=== PATIENT | male | born 1940 | race Caucasian/White ===

== ENCOUNTER 2017-11-17 21:00 | Observation (INO) | payer OTHER ==
[~2017-11-17] VITALS: Ht 175.3 cm; Wt 77.5 kg
[2017-11-17 21:02] VITALS: BP 95/51; PULSE 97; RESP 18; TEMP 97.3; O2SAT 95
[2017-11-17 21:23] VITALS: BP 90/56; PULSE 127; RESP 18; TEMP 97.3; O2SAT 97
[2017-11-17] MEDS ORDERED: LUNE1TAB8 PO (21:23)
--- NOTE | 2017-11-17 21:42 | PD ---
HPI Chief Complaint: Cardiac Complaint Time Seen by Provider: 21:34 Travel History International Travel<30 days: No Contact w/Intl Traveler<30days: No Traveled to known affect area: No History of Present Illness HPI 77-year-old male presents to the emergency department by private vehicle the care of his family for evaluation of pain in the left shoulder and palpitations. According to the patient he takes no routine prescription or over -the-counter medications. Patient has recently been on ibuprofen for bruising of the heel. Patient occasionally uses [id number] sleeping medication. 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 Patient denies any headache dizziness or near syncope syncope sweats shortness of breath chest pain neck pain or mid scapular pain or extremity pain or abdominal pain. Patient denies history of hypertension dyslipidemia diabetes tobaccoism or rhythm disturbance. Patient did experience intermittent episodes of dizziness when he was performing heavy lifting tasks today. Patient denies any dizziness at this time. Patient rates his current pain 0/10 in intensity. Patient did take aspirin prior to arrival to the emergency department. PFSH Past Medical History Narrative Medical Negative past history; cholecystectomy leg surgery; no tobacco use no alcohol use; nursing notes reviewed Diminished Hearing: No Tetanus Vaccination: < 5 Years Influenza Vaccination: Yes Social History Alcohol Use: No Tobacco Use: No Substance Use: No Allergies-Medications (Allergen,Severity, Reaction): Coded Allergies: No Known Allergies (Unverified Allergy, Unknown, 11/17/17) Reported Meds & Prescriptions Reported Meds & Active Scripts Active Reported Lunesta (Eszopiclone) 1 Mg Tab 1 Mg PO HS PRN Review of Systems Except as stated in HPI: all other systems reviewed are Neg General / Constitutional: No: Fever, Chills Eyes: No: Visual changes HENT: Positive: Lightheadedness, No: Headaches, Neck Pain Cardiovascular: Positive: Palpitations, Tachycardia, No: Chest Pain or Discomfort, Diaphoresis, Syncope, Dyspnea on exertion Respiratory: No: Shortness of Breath Gastrointestinal: No: Nausea, Vomiting Genitourinary: No: Urgency, Frequency, Flank Pain Musculoskeletal: No: Pain Skin: No Rash Neurologic: Positive: Dizziness (intermittent with heavy lifting), No: Weakness , Syncope, Focal Abnormalities, Coordination Problem Psychiatric: No: Anxiety Endocrine: No: Heat Intolerance Hematologic/Lymphatic: No: Easy Bruising Physical Exam Narrative GENERAL: Well-developed well-nourished elderly female in no acute distress no respiratory distress heart rate irregularly irregular 90-145bpm; blood pressure 95 systolic patient reports chronically blood pressure is in the 90s. GCS 15. SKIN: Warm and dry. HEAD: Atraumatic. Normocephalic. EYES: Pupils equal and round. No scleral icterus. No injection or drainage. ENT: No nasal bleeding or discharge. Mucous membranes pink and moist. NECK: Trachea midline. No JVD. CARDIOVASCULAR: Increased irregularly irregular rate and rhythm. RESPIRATORY: No accessory muscle use. Clear to auscultation. Breath sounds equal bilaterally. GASTROINTESTINAL: Abdomen soft, non-tender, nondistended. Hepatic and splenic margins not palpable. MUSCULOSKELETAL: Extremities without clubbing, cyanosis, or edema. No obvious deformities. Radial dorsalis pedis pulses 2+ to palpation bilaterally. NEUROLOGICAL: Awake and alert. No obvious cranial nerve deficits. Motor grossly within normal limits. Five out of 5 muscle strength in the arms and legs. Normal speech. PSYCHIATRIC: Appropriate mood and affect; insight and judgment normal. Data Data Last Documented VS Vital Signs Date Time Temp Pulse Resp B/P (MAP) Pulse Ox O2 Delivery O2 Flow Rate FiO2 11/17/17 22:49 52 18 93/54 (67) 97 Room Air 11/17/17 21:23 97.3 Orders Orders Diltiazem Inj (Cardizem Inj) (11/17/17 21:45) Diltiazem Inj (Cardizem Inj) (11/17/17 21:45) Sodium Chloride 0.9% Flush (Ns Flush) (11/17/17 21:45) Electrocardiogram (11/17/17 21:34) Basic Metabolic Panel (Bmp) (11/17/17 21:34) Ckmb (Isoenzyme) Profile (11/17/17 21:34) Complete Blood Count With Diff (11/17/17 21:34) Magnesium (Mg) (11/17/17 21:34) Prothrombin Time / Inr (Pt) (11/17/17 21:34) Act Partial Throm Time (Ptt) (11/17/17 21:34) Troponin I (11/17/17 21:34) Chest, Single Ap (11/17/17 21:34) Ecg Monitoring (11/17/17 21:34) Bilateral Bp Monitoring (11/17/17 21:34) Iv Access Insert/Monitor (11/17/17 21:34) Oximetry (11/17/17 21:34) Oxygen Administration (11/17/17 21:34) Sodium Chloride 0.9% Flush (Ns Flush) (11/17/17 21:45) Sodium Chlorid 0.9% 500 Ml Inj (Ns 500 M (11/17/17 21:45) Sodium Chlorid 0.9% 500 Ml Inj (Ns 500 M (11/17/17 21:45) Sodium Chlor 0.9% 1000 Ml Inj (Ns 1000 M (11/17/17 21:45) B-Type Natriuretic Peptide (11/17/17 21:34) Thyroid Stimulating Hormone (11/17/17 21:34) CKMB (11/17/17 21:35) CKMB% (11/17/17 21:35) Electrocardiogram (11/17/17 22:48) Admit Order (Ed Use Only) (11/17/17 ) Textile Machine Mechanic / Telemetry OSCAR.Q8H (11/17/17 22:59) Diet Heart Healthy (11/18/17 Breakfast) Activity Oob With Assistance (11/17/17 22:59) Notify Dr: Other (11/17/17 22:59) Labs Laboratory Tests Test 11/17/17 21:35 White Blood Count 8.0 TH/MM3 Red Blood Count 4.85 MIL/MM3 Hemoglobin 14.4 GM/DL Hematocrit 42.1 % Mean Corpuscular Volume 86.8 FL Mean Corpuscular Hemoglobin 29.6 PG Mean Corpuscular Hemoglobin Concent 34.1 % Red Cell Distribution Width 13.3 % Platelet Count 169 TH/MM3 Mean Platelet Volume 7.9 FL Neutrophils (%) (Auto) 74.4 % Lymphocytes (%) (Auto) 16.0 % Monocytes (%) (Auto) 8.0 % Eosinophils (%) (Auto) 1.0 % Basophils (%) (Auto) 0.6 % Neutrophils # (Auto) 6.0 TH/MM3 Lymphocytes # (Auto) 1.3 TH/MM3 Monocytes # (Auto) 0.6 TH/MM3 Eosinophils # (Auto) 0.1 TH/MM3 Basophils # (Auto) 0.0 TH/MM3 CBC Comment DIFF FINAL Differential Comment Prothrombin Time 11.4 SEC Prothromb Time International Ratio 1.1 RATIO Activated Partial Thromboplast Time 27.5 SEC Blood Urea Nitrogen 29 MG/DL Creatinine 1.20 MG/DL Random Glucose 182 MG/DL Calcium Level 8.9 MG/DL Magnesium Level 2.4 MG/DL Sodium Level 139 MEQ/L Potassium Level 3.7 MEQ/L Chloride Level 106 MEQ/L Carbon Dioxide Level 24.0 MEQ/L Anion Gap 9 MEQ/L Estimat Glomerular Filtration Rate 59 ML/MIN Total Creatine Kinase 494 U/L Creatine Kinase MB 9.0 NG/ML Creatine Kinase MB % 1.8 % Troponin I 0.05 NG/ML B-Type Natriuretic Peptide 58 PG/ML Thyroid Stimulating Hormone 3rd Gen 2.120 uIU/ML MDM Medical Decision Making Medical Screen Exam Complete: Yes Emergency Medical Condition: Yes Medical Record Reviewed: Yes Interpretation(s) CBC & BMP Diagram 11/17/17 21:35 Calcium Level 8.9, Magnesium Level 2.4 Vital Signs Date Time Temp Pulse Resp B/P (MAP) Pulse Ox O2 Delivery O2 Flow Rate FiO2 11/17/17 22:49 52 18 93/54 (67) 97 Room Air 11/17/17 22:11 89 18 99/60 (73) 96 Room Air 96/57 (70) 11/17/17 22:06 114 18 96/59 (71) 97 Room Air 11/17/17 22:04 97 Room Air 11/17/17 22:04 97 11/17/17 21:25 127 18 97 Room Air 11/17/17 21:23 97.3 127 18 90/56 (67) 97 11/17/17 21:02 97.3 97 18 95/51 (66) 95 EKG #1: Atrial fibrillation with rapid ventricular rate heart rate 1:[address] elevation or injury pattern EKG #2 sinus bradycardia rate [address] elevation or injury pattern or ectopy noted Troponin I: 0.05, within normal range; CK total 44, elevated CK-MB 9 elevated MB percent however 1.8% not elevated; BNP: 58, not elevated TSH: 2.120 within normal range Differential Diagnosis New-onset atrial fibrillation with RVR, hypotension, ACS, thyroid dysfunction, electrolyte disturbance, CHF Narrative Course Patient placed on cardiac cath lab radiology technologist with continuous pulse oximetry IV access obtained specimens collected and sent for resulting patient given a 500 cc bolus of normal saline weight-based Cardizem dose is 19 mg administered as half dose for rate control and with close monitoring of blood pressure. Patient and family informed patient will be admitted for new onset atrial fibrillation with RVR Physician Communication Physician Communication call placed to [facility] service discussed with Dr Prieto will OBS to her service Diagnosis Primary Impression: New onset atrial fibrillation Admitting Information Admitting Physician Requests: Admit Lori Louis MD Nov 17, 2017 21:42
[2017-11-17] MEDS ORDERED: SODIUM CHLORIDE 0.9% FLUSH 10 ML FLUSH IVF PRN (21:45)
[2017-11-17] MEDS ORDERED: DILTIAZEM HCL 25 MG/5 ML VIAL IV PUSH ONE (21:45)
[2017-11-17] MEDS ORDERED: DILTIAZEM INJ 125 MG in SODIUM CHLORIDE 0.9% INJ 100 ML IV PRN (21:45)
[2017-11-17] MEDS ORDERED: SODIUM CHLORID 0.9% 500 ML INJ 500 ML IV ONE ×2 (21:45)
[2017-11-17] MEDS ORDERED: SODIUM CHLORIDE 0.9% FLUSH 10 ML FLUSH IV FLUSH PRN ×2 (21:45→23:00)
[2017-11-17 21:49] LABS: BASOPHIL % 0.6 % (0.0-2.0); EOSINOPHIL # 0.1 TH/MM3 (0-0.4); HEMATOCRIT 42.1 % (39.0-51.0); HEMO FLAGS DIFF FINAL; LYMPHOCYTE # 1.3 TH/MM3 (1.0-4.8); MEAN CELL VOLUME 86.8 FL (80.0-100.0); MEAN CORPUSCULAR HEMOGLOBIN 29.6 PG (27.0-34.0); MEAN CORPUSCULAR HGB CONC 34.1 % (32.0-36.0); NEUT % 74.4 % (16.0-70.0); PLATELET COUNT 169 TH/MM3 (150-450); RED BLOOD COUNT 4.85 MIL/MM3 (4.50-5.90); RED CELL DISTRIBUTION WIDTH 13.3 % (11.6-17.2)
[2017-11-17 21:59] LABS: POTASSIUM 3.7 MEQ/L (3.5-5.1)
[2017-11-17 22:03] LABS: APTT (PATIENT) 27.5 SEC (24.3-30.1); INTERNATIONAL NORMALIZED RATIO 1.1 RATIO; PROTHROMBIN TIME - PATIENT 11.4 SEC (9.8-11.6)
[2017-11-17 22:04] VITALS: O2SAT 97
[2017-11-17 22:04] LABS: MAGNESIUM 2.4 MG/DL (1.5-2.5)
[2017-11-17 22:06] VITALS: BP 96/59; PULSE 114; RESP 18; O2SAT 97
[2017-11-17] MEDS: SODIUM CHLOR 0.9% 1000 ML INJ 1,000 ML IV SCH (22:08)
[2017-11-17 22:11] VITALS: BP_SYST 96; BP_SYST 99; BP_DIAS 57; BP_DIAS 60; PULSE 89; RESP 18; O2SAT 96
--- NOTE | 2017-11-17 22:31 | RADRPT ---
EXAM DATE/TIME: 11/17/2017 21:55 [facility] COMPARISON: No previous studies available for comparison. INDICATIONS : Rapid heart rate tonight. MEDICAL HISTORY : None. SURGICAL HISTORY : None. ENCOUNTER: Initial ACUITY: 1 day PAIN SCORE: 2/10 LOCATION: Bilateral chest FINDINGS: A single view of the chest demonstrates the lungs to be symmetrically aerated without evidence of mas s, infiltrate or effusion. The cardiomediastinal contours are unremarkable. Osseous structures are intact. CONCLUSION: The lungs are clear. Reymundo Villalba MD on November 17, 2017 at 22:29 Board Certified Radiologist. This report was verified electronically.
[2017-11-17 22:49] VITALS: BP 93/54; PULSE 52; RESP 18; O2SAT 97
[2017-11-17] MEDS: HEPARIN SODIUM - SQ 10,000 UNITS/ML VIAL SQ SCH (23:19)
[2017-11-18 00:10] VITALS: BP 95/57; PULSE 51; RESP 18; O2SAT 97
[2017-11-18 01:00] VITALS: BP 95/57; PULSE 55; RESP 20; TEMP 96.9; O2SAT 96
[2017-11-18 01:06] VITALS: PULSE 52
[2017-11-18 04:12] LABS: CKMB 7.4 NG/ML (0.5-3.6)
[2017-11-18 04:13] LABS: POTASSIUM 3.8 MEQ/L (3.5-5.1)
[2017-11-18 04:16] LABS: BICARBONATE 24.3 MEQ/L (21.0-32.0)
[2017-11-18 04:49] LABS: AUTOMATED NEUTROPHIL # 2.4 TH/MM3 (1.8-7.7); BASOPHIL % 0.5 % (0.0-2.0); EOSINOPHIL # 0.2 TH/MM3 (0-0.4); HEMATOCRIT 38.7 % (39.0-51.0); HEMO FLAGS DIFF FINAL; LYMPH % 27.8 % (9.0-44.0); LYMPHOCYTE # 1.2 TH/MM3 (1.0-4.8); MEAN CELL VOLUME 91.9 FL (80.0-100.0); MEAN CORPUSCULAR HEMOGLOBIN 29.5 PG (27.0-34.0); MEAN CORPUSCULAR HGB CONC 32.2 % (32.0-36.0); MONO % 12.6 % (0.0-8.0); NEUT % 55.1 % (16.0-70.0); PLATELET COUNT 141 TH/MM3 (150-450); RED BLOOD COUNT 4.21 MIL/MM3 (4.50-5.90); RED CELL DISTRIBUTION WIDTH 13.6 % (11.6-17.2); WHITE BLOOD COUNT 4.4 TH/MM3 (4.0-11.0)
[2017-11-18 04:53] VITALS: BP 103/58; PULSE 53; RESP 20; TEMP 96.9; O2SAT 95
[2017-11-18] MEDS: HEPARIN SODIUM - SQ 10,000 UNITS/ML VIAL SQ SCH ×2 (06:13→15:00)
[2017-11-18] MEDS: SODIUM CHLOR 0.9% 1000 ML INJ 1,000 ML IV SCH (06:15)
--- NOTE | 2017-11-18 06:16 | EKG ---
Date Performed: 11/17/2017 Time Performed: 22:48:41 PTAGE: 77 years EKG: SINUS BRADYCARDIA BORDERLINE ECG Compared to prior electrocardiogram, Sinus bradycardia has replaced atrial fibrillation PREVIOUS TRACING : 11/17/2017 21.21 DOCTOR: Jose E Chandler Interpretating Date/Time 11/18/2017 06:15:55
--- NOTE | 2017-11-18 06:27 | EKG ---
Date Performed: 11/17/2017 Time Performed: 21:21:50 PTAGE: 77 years EKG: ATRIAL FIBRILLATION WITH RAPID VENTRICULAR RESPONSE MODERATE ST DEPRESSION ABNORMAL ECG Com pared to prior electrocardiogram, atrial fibrillation is now present PREVIOUS TRACING : 09/20/2001 09.23 DOCTOR: Jose E Chandler Interpretating Date/Time 11/18/2017 06:26:26
[2017-11-18 08:00] VITALS: BP 100/52; PULSE 51; RESP 19; TEMP 97.9; O2SAT 97
--- NOTE | 2017-11-18 08:31 | MB ---
cc: VIOLETTA BETANCUR MD DATE OF CONSULTATION 11/18/2017 REASON FOR CONSULTATION New onset atrial fibrillation. HISTORY OF PRESENT ILLNESS Mr. Warner is a 77-year-old man who does have a history of hyperlipidemia and GERD. He presented to the emergency room with new onset palpitations. He was felt to be in atrial fibrillation with rapid ventricular rate. Cardiology was subsequently consulted. The patient reports that he had been out working in the yard and had not had much to drink that day. He had some dizziness and palpitations which subsequently high precipitated his presentation. PAST MEDICAL HISTORY Significant for - 1. Hyperlipidemia. 2. Fatigue. 3. GERD. 4. Insomnia. ALLERGIES No known drug allergies. OUTPATIENT MEDICATIONS Lunesta. REVIEW OF SYSTEMS Except as mentioned in the HPI, all 12 systems are negative. The patient specifically denied any chest pain or shortness of breath. SOCIAL HISTORY The patient does not drink or smoke. ALLERGIES No known drug allergies. FAMILY HISTORY Noncontributory. PHYSICAL EXAMINATION CURRENT VITAL SIGNS: 96.9, 63, 20, 103/58. GENERAL: He is a well-appearing male who is in no apparent distress. NDCK: His neck is free from JVD. LUNGS: The lungs are bilaterally clear to auscultation. CARDIOVASCULAR EXAMINATION: He has a normal S1 and S2. I did not appreciate any murmurs, rubs or gallops. ABDOMEN: The abdomen is soft. EXTREMITIES: The extremities are free from edema. ECG Currently shows sinus bradycardia with a rate of 57. His ECG on arrival does show atrial fibrillation with rapid ventricular rate at 138 beats a minute. LABORATORY VALUES Significant for an initial hemoglobin of 14.4 that is 12.4 this morning. His creatinine was 1.2 and today is 0.86 with a BUN of 31. Serial troponins are 0.05/0.10. His total CK is 350 with an MB of 7.4 and an MB percent of 2.1. TSH is 2.1. IMPRESSION AND PLAN New-onset atrial fibrillation - The patient's CHADS-VASc score is 2 for his age. The patient was awake he was in A-fib with the elevated heart rate. He was otherwise asymptomatic. At this point we discussed anticoagulation. He is agreeable to Pradaxa but wishes to discuss it with his . We can start this if his stress test is negative or normal. Regarding rate control, his resting heart rate did dip into the low 50s overnight. This was off of any medication. Thus at this point he is likely a bit too bradycardiac for calcium channel blockers or beta blockers. Again he will need further evaluation to consider other medications such as sotalol or flecainide p.r.n. Given that he is in normal sinus rhythm today, I would complete his workup and he can be discharged on flecainide 50 mg daily p.r.n. atrial fibrillation/palpitation. Again, the Pradaxa can be started if his stress test is not ischemic. Indeterminate troponin - The patient had a negative CK-MB percent. It is likely elevated secondary to the A-fib RVR with some relative dehydration. At this point I do agree that echocardiogram and nuclear stress testing is reasonable. He can be discharged home from a cardiovascular perspective provided the nuclear is nonischemic. Thank you for allowing me the opportunity to participate in his care. Sincerely, Violetta Betancur M.D. MARLYN/SSB /7:49 AM /8:11 AM
--- NOTE | 2017-11-18 08:46 | EKG ---
Date Performed: 11/18/2017 Time Performed: 04:09:33 PTAGE: 77 years EKG: SINUS BRADYCARDIA BORDERLINE ECG No significant change from prior electrocardiogram. PREVIOUS TRACING : 11/17/2017 22.48 DOCTOR: Jose E Chandler Interpretating Date/Time 11/18/2017 08:45:54
[2017-11-18] MEDS ORDERED: SODIUM CHLORIDE 0.9% FLUSH 10 ML FLUSH IV FLUSH SCH (09:00)
--- NOTE | 2017-11-18 09:37 | HHI.HP ---
[facility] Service [facility] Primary Care Physician Carmen Kaur Do, MD Admission Diagnosis new onset atrial fibrillation w/ RVR Diagnoses: Chief Complaint: Heart palpitation Travel History International Travel<30 Days: No Contact w/Intl Traveler <30 Da: No Traveled to Known Affected Are: No History of Present Illness Mr. Warner is a pleasant 77-year-old male with no significant medical history who presents to the emergency department on 11/17/2017 due to palpitation. 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 She did not eat or drink much while he was working. He experienced some left shoulder pain which he attributes to lifting heavy materials. At around 5 PM he started experiencing palpitation. He also felt somewhat dizzy and lightheaded. On his 's insistence, patient came to the emergency department for further evaluation. He denies any chest pain, shortness of breath, fever or chills. Denies any abdominal pain area and no changes in bowel or bladder habits. Review of Systems Except as stated in HPI: all other systems reviewed are Neg Past Family Social History Past Medical History No significant medical history. His blood pressure is usually low at around 97/ 57. Past Surgical History Cholecystectomy, left tibial surgery Reported Medications Lunesta (Eszopiclone) 1 Mg Tab 1 Mg PO HS PRN Allergies: Coded Allergies: No Known Allergies (Unverified Allergy, Unknown, 11/17/17) Family History No family history of Alzheimer's disease, Parkinson's, cancer Social History Patient denies using alcohol, tobacco, illicit drugs. Physical Exam Vital Signs Vital Signs Date Time Temp Pulse Resp B/P (MAP) Pulse Ox O2 Delivery O2 Flow Rate FiO2 11/18/17 08:00 97.9 51 19 100/52 (68) 97 11/18/17 04:53 96.9 53 20 103/58 (73) 95 11/18/17 01:06 52 11/18/17 01:01 51 18 97 11/18/17 01:00 96.9 55 20 95/57 (70) 96 11/18/17 01:00 96.9 55 20 95/57 (70) 96 11/18/17 00:10 51 18 95/57 (70) 97 Room Air 11/17/17 22:49 52 18 93/54 (67) 97 Room Air 11/17/17 22:11 89 18 99/60 (73) 96 Room Air 96/57 (70) 11/17/17 22:06 114 18 96/59 (71) 97 Room Air 11/17/17 22:04 97 Room Air 11/17/17 22:04 97 11/17/17 21:25 127 18 97 Room Air 11/17/17 21:23 97.3 127 18 90/56 (67) 97 11/17/17 21:02 97.3 97 18 95/51 (66) 95 Physical Exam GENERAL: This is a well-nourished, well-developed patient, in no apparent distress. SKIN: No rashes, ecchymoses or lesions. Warm and dry. HEAD: Atraumatic. Normocephalic. No temporal or scalp tenderness. EYES: Pupils equal round and reactive. No injection or drainage. ENT: Nose without bleeding, purulent drainage or septal hematoma. Airway patent. NECK: Trachea midline. No lymphadenopathy. Supple, nontender, no meningeal signs. CARDIOVASCULAR: Regular rate and rhythm without murmurs, gallops, or rubs. No JVD. RESPIRATORY: Clear to auscultation. Breath sounds equal bilaterally. No wheezes , rales, or rhonchi. GASTROINTESTINAL: Abdomen soft, non-tender, nondistended. No guarding. MUSCULOSKELETAL: Extremities without clubbing, cyanosis, or edema. NEUROLOGICAL: Awake and alert. Cranial nerves II through XII intact. No focal neurological deficits. Normal speech. Laboratory Laboratory Tests Test 11/17/17 21:35 11/18/17 03:30 White Blood Count 8.0 4.4 Red Blood Count 4.85 4.21 Hemoglobin 14.4 12.4 Hematocrit 42.1 38.7 Mean Corpuscular Volume 86.8 91.9 Mean Corpuscular Hemoglobin 29.6 29.5 Mean Corpuscular Hemoglobin Concent 34.1 32.2 Red Cell Distribution Width 13.3 13.6 Platelet Count 169 141 Mean Platelet Volume 7.9 8.1 Neutrophils (%) (Auto) 74.4 55.1 Lymphocytes (%) (Auto) 16.0 27.8 Monocytes (%) (Auto) 8.0 12.6 Eosinophils (%) (Auto) 1.0 4.0 Basophils (%) (Auto) 0.6 0.5 Neutrophils # (Auto) 6.0 2.4 Lymphocytes # (Auto) 1.3 1.2 Monocytes # (Auto) 0.6 0.6 Eosinophils # (Auto) 0.1 0.2 Basophils # (Auto) 0.0 0.0 CBC Comment DIFF FINAL DIFF FINAL Differential Comment Prothrombin Time 11.4 Prothromb Time International Ratio 1.1 Activated Partial Thromboplast Time 27.5 Blood Urea Nitrogen 29 31 Creatinine 1.20 0.86 Random Glucose 182 101 Calcium Level 8.9 8.2 Magnesium Level 2.4 Sodium Level 139 141 Potassium Level 3.7 3.8 Chloride Level 106 109 Carbon Dioxide Level 24.0 24.3 Anion Gap 9 8 Estimat Glomerular Filtration Rate 59 86 Total Creatine Kinase 494 350 Creatine Kinase MB 9.0 7.4 Creatine Kinase MB % 1.8 2.1 Troponin I 0.05 0.10 B-Type Natriuretic Peptide 58 Thyroid Stimulating Hormone 3rd Gen 2.120 Result Diagram: 11/18/17 0330 11/18/17 0330 Imaging Last Impressions Myocardial Perfusion Scan Nuc Med 11/18/17 0000 Signed Impressions: Service Date/Time: Saturday, November 18, 2017 10:22 - CONCLUSION: 1. No significant reversibility to suggest ischemia. 2. Normal wall motion with ejection fraction 67%%. RISK CATEGORY: Low (<1%% Annual Mortality Rate) Branden Morales MD Chest X-Ray 11/17/[id number] Signed Impressions: Service Date/Time: Friday, November 17, 2017 21:55 - CONCLUSION: The lungs are clear. Reymundo Villalba MD Echocardiogram The left ventricular systolic function is normal with an estimated ejection fraction of 55%. Wall thickness is normal. Normal left ventricular size. There is mild tricuspid valve regurgitation. The estimated pulmonary arterial pressure is 30 mmHg. Caprini VTE Risk Assessment Caprini VTE Risk Assessment: Mod/High Risk (score >= 2) Caprini Risk Assessment Model Point Value = 1 Point Value = 2 Point Value = 3 Point Value = 5 Age 41-60 Minor surgery BMI > 25 kg/m2 Swollen legs Varicose veins or History of unexplained or recurrent spontaneous Oral contraceptives or hormone replacement Sepsis (< 1 month) Serious lung disease, including pneumonia (< 1 month) Abnormal pulmonary function Acute myocardial infarction Congestive heart failure (< 1 month) History of inflammatory bowel disease Medical patient at bed rest Age 61-74 Arthroscopic surgery Major open surgery (> 45 min) Laparoscopic surgery (> 45 min) Malignancy Confined to bed (> 72 hours) Immobilizing plaster cast Central venous access Age >= 75 History of VTE Family history of VTE Factor V Leiden Prothrombin [id number] Lupus anticoagulant Anticardiolipin antibodies Elevated serum homocysteine Heparin-induced thrombocytopenia Other congenital or acquired thrombophilia Stroke (< 1 month) Elective arthroplasty Hip, pelvis, or leg fracture Acute spinal cord injury (< 1 month) Prophylaxis Regimen Total Risk Factor Score Risk Level Prophylaxis Regimen 0-1 Low Early ambulation 2 Moderate Order ONE of the following: *Sequential Compression Device (SCD) *Heparin 5000 units SQ BID 3-4 Higher Order ONE of the following medications: *Heparin 5000 units SQ TID *Enoxaparin/Lovenox 40 mg SQ daily (WT < 150 kg, CrCl > 30 mL/min) *Enoxaparin/Lovenox 30 mg SQ daily (WT < 150 kg, CrCl > 10-29 mL/min) *Enoxaparin/Lovenox 30 mg SQ BID (WT < 150 kg, CrCl > 30 mL/min) AND/OR *Sequential Compression Device (SCD) 5 or more Highest Order ONE of the following medications: *Heparin 5000 units SQ TID (Preferred with Epidurals) *Enoxaparin/Lovenox 40 mg SQ daily (WT < 150 kg, CrCl > 30 mL/min) *Enoxaparin/Lovenox 30 mg SQ daily (WT < 150 kg, CrCl > 10-29 mL/min) *Enoxaparin/Lovenox 30 mg SQ BID (WT < 150 kg, CrCl > 30 mL/min) AND *Sequential Compression Device (SCD) Assessment and Plan Problem List: (1) New onset atrial fibrillation ICD Code: I48.91 - Unspecified atrial fibrillation Status: Acute Assessment and Plan Mr. 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 ED workup indicated new onset atrial fibrillation. Cardiology was consulted. - New onset atrial fibrillation - Patient's heart rate currently is in the 50s. - Nuclear stress test was unremarkable for any acute ischemic findings. - Echocardiogram shows normal ejection fraction. - Cardiology recommended against her symptoms are block or beta bret. However when necessary flecainide was recommended. - Patient's [id number] score is 2 (age). Full code. Discharge patient to home Condition on discharge: Improved Heart healthy Diet as tolerated Ad Dinora activity Rx written: - Flecainide 50mg BID PRN for Atrial fibrillation - Dabigatran 150mg BID Follow-up with primary care physician within two weeks. Cardiology follow up per Design Quality Engineer. Vi Jessica DO Nov 18, 2017 9:37 am
[2017-11-18] MEDS ORDERED: FLEC1TAB8 PO (09:55)
[2017-11-18] MEDS ORDERED: PRAD150C PO (09:55)
[2017-11-18] MEDS ORDERED: REGADENOSON INJ 0.4 MG/5 ML SYR IV ONE (10:39)
[2017-11-18 12:00] VITALS: BP 110/69; PULSE 55; RESP 18; TEMP 97.9; O2SAT 95
--- NOTE | 2017-11-18 12:04 | RADRPT ---
EXAM DATE/TIME: 11/18/2017 10:22 [facility] COMPARISON: No previous studies available for comparison. INDICATIONS : Dizziness with chest palpitations for one day. Angina. Atrial fibrillation. DOSE: 25.3 mCi Tc99m Myoview at stress. 8.7 mCi Tc99m Myoview at rest. 0.4 mg Lexiscan STRESS SYMPTOMS: Flush and short of breath. EJECTION FRACTION: 67% MEDICAL HISTORY : Gastroesophageal reflux disease. SURGICAL HISTORY : None. ENCOUNTER: Initial ACUITY: 1 day PAIN SCALE: 1/10 LOCATION: Midsternal chest TECHNIQUE: The patient underwent pharmacologic stress with infusion of prescribed dose. Continuous ECG tracing was monitored during stress. Gated SPECT imaging was performed after stress and conventional SPECT i maging was performed at rest. The examination was performed on a SPECT/CT scanner, both attenuation and non-corrected datasets were reviewed. FINDINGS: DISTRIBUTION: The maximum perfused segment at stress is in the anterior wall. PERFUSION STUDY: The pattern of perfusion at stress is within normal limits. GATED STUDY: There is intact wall motion and thickening without hypokinetic or dyskinetic segments. CONCLUSION: 1. No significant reversibility to suggest ischemia. 2. Normal wall motion with ejection fraction 67%. RISK CATEGORY: Low (<1% Annual Mortality Rate) Branden Morales MD on November 18, 2017 at 12:00 Board Certified Radiologist. This report was verified electronically.
[2017-11-18] MEDS ORDERED: NALOXONE HCL 0.4 MG/ML AMP IV PUSH PRN (14:45)
[2017-11-18] MEDS ORDERED: LACTULOSE SYRUP 20 GM/30 ML CUP PO PRN (14:45)
[2017-11-18] MEDS ORDERED: MAGNESIUM HYDROXIDE SUSP 30 ML CUP PO PRN (14:45)
[2017-11-18] MEDS ORDERED: BISACODYL 10 MG SUPP RECTAL PRN (14:45)
[2017-11-18] MEDS ORDERED: SENNOSIDES 8.6 MG TAB PO PRN (14:45)
--- NOTE | 2017-11-18 14:52 | EKG ---
Date Performed: 11/18/2017 Time Performed: 09:13:56 PTAGE: 77 years EKG: SINUS BRADYCARDIA BORDERLINE ECG No significant change from prior electrocardiogram. PREVIOUS TRACING : 11/18/2017 04.09 DOCTOR: Jose E Chandler Interpretating Date/Time 11/18/2017 14:50:31
--- NOTE | 2017-11-18 14:55 | ECHRPT ---
Indication: Persistent atrial fibrillation CONCLUSIONS The left ventricular systolic function is normal with an estimated ejection fraction of 55%. Wall thickness is normal. Normal left ventricular size. There is mild tricuspid valve regurgitation. The estimated pulmonary arterial pressure is 30 mmHg. BP: / HR: 55 Rhythm: Sinus MEASUREMENTS (Male / Female) Normal Values Technical Quality:Good 2D ECHO LV Diastolic Diameter PLAX 4.3 cm 4.2 - 5.9 / 3.9 - 5.3 cm LV Systolic Diameter PLAX 3.1 cm IVS Diastolic Thickness 1.2 cm 0.6 - 1.0 / 0.6 - 0.9 cm LVPW Diastolic Thickness 1.2 cm 0.6 - 1.0 / 0.6 - 0.9 cm LV Relative Wall Thickness 0.6 LVOT Diameter 2.1 cm M-MODE Aortic Root Diameter MM 2.3 cm LA Systolic Diameter MM 3.1 cm LA Ao Ratio MM 1.3 AV Cusp Separation MM 2.2 cm DOPPLER AV Peak Velocity 106.0 cm/s AV Peak Gradient 4.5 mmHg LVOT Peak Velocity 88.8 cm/s LVOT Peak Gradient 3.2 mmHg AV Area Cont Eq pk 2.9 cm Mitral E Point Velocity 55.3 cm/s Mitral A Point Velocity 42.4 cm/s Mitral E to A Ratio 1.3 LV E' Lateral Velocity 10.5 cm/s Mitral E to LV E' Lateral Ratio 5.3 LV E' Septal Velocity 8.3 cm/s Mitral E to LV E' Septal Ratio 6.7 TR Peak Velocity 225.0 cm/s TR Peak Gradient 20.3 mmHg Right Atrial Pressure 10.0 mmHg Pulmonary Artery Systolic Pressu 30.3 mmHg Right Ventricular Systolic Press 30.3 mmHg PV Peak Velocity 105.0 cm/s PV Peak Gradient 4.4 mmHg FINDINGS LEFT VENTRICLE The left ventricular systolic function is normal with an estimated ejection fraction of 55%. Wall thickness is normal. Normal left ventricular size. RIGHT VENTRICLE Normal right ventricular size and systolic function. LEFT ATRIUM The left atrial size is normal. RIGHT ATRIUM The right atrial size is normal. ATRIAL SEPTUM Normal atrial septal thickness without atrial level shunting by limited color doppler interrogation. AORTA The aortic root and proximal ascending aorta are normal in size on limited imaging. MITRAL VALVE Structurally normal mitral valve. No mitral valve stenosis or regurgitation. AORTIC VALVE Trileaflet aortic valve. No aortic valve stenosis or regurgitation. TRICUSPID VALVE There is mild tricuspid valve regurgitation. The estimated pulmonary arterial pressure is 30.3 mmHg. PULMONARY VALVE No pulmonary valve regurgitation or stenosis. VESSELS The inferior vena cava is normal in size. PERICARDIUM No pericardial effusion. Mirta Abbott MD, FACC (Electronically Signed) Final Date:18 November 2017 14:53
--- NOTE | 2017-11-19 13:08 | TR ---
Date Performed: 11/18/2017 Time Performed: 10:47:36 DOCTOR: Adarsh Mrac DRUG LIST: CLINICAL HISTORY: A FIB REASON FOR TEST: A FIB REASON FOR ENDING: OBSERVATION: CONCLUSION: \won COMMENTS:
== END 2017-11-18 19:00 | disposition home or self-care (01) ==
LOC: PHED 21:00 → PHEDA 23:00 → PH3A 11-18 00:45
PROVIDERS: ADMIT Hospitalist; ATTEND Hospitalist
DX: I48.91 Unspecified atrial fibrillation (principal); E86.0 Dehydration; M25.512 Pain in left shoulder; R00.1 Bradycardia, unspecified; R94.31 Abnormal electrocardiogram [ECG] [EKG]; R00.2 Palpitations; R42 Dizziness and giddiness; I20.9 Angina pectoris, unspecified; E78.5 Hyperlipidemia, unspecified; K21.9 Gastro-esophageal reflux disease without esophagitis
CPT/HCPCS: 71010; 78452; 80048; 82550; 82552; 83735; 83880; 84443; 84484; 85025; 85610; 85730; 93005; 93017; 93306; 96361; 96372; 96374; 99285; A9502; G0378; J1644; J2785; J7030; J7040

== ENCOUNTER 2018-02-28 19:09 | Observation (INO) | payer OTHER ==
[~2018-02-28 19:09] MED LIST: FLEC1TAB8 PO; LUNE1TAB8 PO; PRAD150C PO
[2018-02-28 19:25] VITALS: BP 116/66; PULSE 71; RESP 16; O2SAT 98
[2018-02-28] MEDS ORDERED: SAWCAP2 PO (19:31)
[2018-02-28 19:36] VITALS: TEMP 99.1
[2018-02-28] MEDS ORDERED: SODIUM CHLORIDE 0.9% FLUSH 10 ML FLUSH IVF PRN (19:45)
[2018-02-28 19:58] LABS: AUTOMATED NEUTROPHIL # 8.1 TH/MM3 (1.8-7.7); BASOPHIL % 0.5 % (0.0-2.0); EOSINOPHIL # 0.1 TH/MM3 (0-0.4); EOSINOPHIL % 0.9 % (0.0-4.0); HEMATOCRIT 42.3 % (39.0-51.0); HEMOGLOBIN 14.1 GM/DL (13.0-17.0); LYMPH % 7.8 % (9.0-44.0); LYMPHOCYTE # 0.7 TH/MM3 (1.0-4.8); MEAN CELL VOLUME 88.9 FL (80.0-100.0); MEAN CORPUSCULAR HEMOGLOBIN 29.7 PG (27.0-34.0); MEAN CORPUSCULAR HGB CONC 33.4 % (32.0-36.0); MEAN PLATELET VOLUME 8.2 FL (7.0-11.0); MONO % 7.4 % (0.0-8.0); MONOCYTE # 0.7 TH/MM3 (0-0.9); NEUT % 83.4 % (16.0-70.0); PLATELET COUNT 184 TH/MM3 (150-450); RED BLOOD COUNT 4.76 MIL/MM3 (4.50-5.90); RED CELL DISTRIBUTION WIDTH 13.9 % (11.6-17.2); WHITE BLOOD COUNT 9.6 TH/MM3 (4.0-11.0)
--- NOTE | 2018-02-28 19:58 | RADRPT ---
EXAM DATE/TIME: 02/28/2018 19:47 [facility] COMPARISON: No previous studies available for comparison. INDICATIONS : Chest pain. MEDICAL HISTORY : None. SURGICAL HISTORY : None. ENCOUNTER: Initial ACUITY: 1 week PAIN SCORE: 8/10 LOCATION: Bilateral chest FINDINGS: PA and lateral views of the chest demonstrate the lungs to be symmetrically aerated without evidence of mass, infiltrate or effusion. The cardiomediastinal contours are unremarkable. Osseous structure s are intact. CONCLUSION: No acute disease. Dewayne Jones MD on February 28, 2018 at 19:56 Board Certified Radiologist. This report was verified electronically.
--- NOTE | 2018-02-28 20:02 | PD ---
HPI Chief Complaint: Chest Pain Time Seen by Provider: 19:36 Travel History International Travel<30 days: No Contact w/Intl Traveler<30days: No Traveled to known affect area: No History of Present Illness HPI 77-year-old male presents to the emergency department by private transportation for evaluation of left-sided chest pain worsened by deep respiratory effort. Patient states she has been ill for the past 6 days with flulike symptoms and subjective fever and chills. Patient is also had nonproductive cough. Patient today noted around 4 PM severe left-sided pain worsened by deep respiratory effort. Patient is currently taking Pradaxa for history of atrial fibrillation diagnosed 10/2017. Patient denies any shortness of breath. Patient denies any long-distance travel protracted bedrest or surgical procedure. Patient presently denies any fever or chills. Patient denies any chronic medical conditions other than his previously noted atrial fibrillation. Patient underwent stress testing October 2016 and nuclear stress test was low less than 1% annual mortality risk and no reversibility on study to suggest ischemia ejection fraction of 67%. Patient denies history of hypertension dyslipidemia diabetes tobaccoism other chronic medical conditions. The patient rates his discomfort as moderate in intensity when present. Patient denies any recent increase in bruising, gum bleeding, epistaxis, hemoptysis, hematemesis, coffee- ground emesis, melena, hematochezia, or hematuria. Patient reports symptoms began shortly after eating a handful of nuts. No history of gastritis, peptic ulcer disease, pancreatitis, gallstones, biliary colic, colitis, or diverticulosis. PFSH Past Medical History Narrative Medical Atrial fibrillation; no surgery; no tobacco use; nursing notes reviewed Atrial Fibrillation: Yes (History) Autoimmune Disease: No Heart Rhythm Problems: Yes (new onset afib w/rvr) Cancer: No Cardiovascular Problems: Yes Cerebrovascular Accident: No Diminished Hearing: No Endocrine: No Genitourinary: Yes Immune Disorder: No Insomnia: Yes Musculoskeletal: No Neurologic: Yes Psychiatric: No Reproductive: No Respiratory: No Migraines: No Seizures: No Tetanus Vaccination: < 5 Years Influenza Vaccination: Yes Social History Alcohol Use: No Tobacco Use: No (45 years ago) Substance Use: No Allergies-Medications (Allergen,Severity, Reaction): Coded Allergies: No Known Allergies (Unverified Allergy, Unknown, 02/28/18) Reported Meds & Prescriptions Reported Meds & Active Scripts Active Flecainide (Flecainide Acetate) 50 Mg Tab 50 Mg PO BID PRN Take it if heart rate > 100 at rest. Pradaxa (Dabigatran) 150 Mg Cap 150 Mg PO BID Reported Saw Caldwell Extract (Saw Caldwell-Zinc) 160-15 mg Cap 1 Cap PO DAILY Lunesta (Eszopiclone) 1 Mg Tab 1 Mg PO HS PRN Review of Systems Except as stated in HPI: all other systems reviewed are Neg General / Constitutional: Positive: Fever (Subjective) HENT: Positive: Congestion Cardiovascular: Positive: Chest Pain or Discomfort Respiratory: Positive: Cough, No: Shortness of Breath, Wheezing Gastrointestinal: No: Vomiting, Abdominal Pain Genitourinary: No: Flank Pain Musculoskeletal: No: Myalgias, Arthralgias Skin: No Rash Neurologic: No: Weakness, Dizziness, Syncope Psychiatric: No: Anxiety Hematologic/Lymphatic: No: Lymph Node Enlargement Physical Exam Narrative GENERAL: Well-developed well-nourished male no acute distress no respiratory distress SKIN: Warm and dry. HEAD: Normocephalic. EYES: No scleral icterus. No injection or drainage. NECK: Supple, trachea midline. No JVD or lymphadenopathy. CARDIOVASCULAR: Regular rate and rhythm without murmurs, gallops, or rubs. Chest wall: Nontender to palpation no ecchymosis abrasion no vesicular rash or erythema no crepitus or point bony tenderness. RESPIRATORY: Breath sounds equal bilaterally. No accessory muscle use. GASTROINTESTINAL: Abdomen soft, non-tender, nondistended. MUSCULOSKELETAL: No cyanosis, or edema. Bilateral radial bilateral dorsalis pedis pulses 2+ to palpation. BACK: Nontender without obvious deformity. No CVA tenderness. Data Data Last Documented VS Vital Signs Date Time Temp Pulse Resp B/P (MAP) Pulse Ox O2 Delivery O2 Flow Rate FiO2 02/28/18 19:36 99.1 02/28/18 19:25 71 16 116/66 (83) 98 Orders Orders Electrocardiogram (02/28/18 19:36) Ckmb (Isoenzyme) Profile (02/28/18 19:36) Complete Blood Count With Diff (02/28/18 19:36) Comprehensive Metabolic Panel (02/28/18 19:36) Magnesium (Mg) (02/28/18 19:36) Prothrombin Time / Inr (Pt) (02/28/18 19:36) Act Partial Throm Time (Ptt) (02/28/18 19:36) Troponin I (02/28/18 19:36) Lipase (02/28/18 19:36) Ecg Monitoring (02/28/18 19:36) Bilateral Bp Monitoring (02/28/18 19:36) Iv Access Insert/Monitor (02/28/18 19:36) Oximetry (02/28/18 19:36) Oxygen Administration (02/28/18 19:36) Sodium Chloride 0.9% Flush (Ns Flush) (02/28/18 19:45) Chest, Pa & Lat (02/28/18 19:36) Labs Laboratory Tests Test 02/28/18 19:19 White Blood Count 9.6 TH/MM3 Red Blood Count 4.76 MIL/MM3 Hemoglobin 14.1 GM/DL Hematocrit 42.3 % Mean Corpuscular Volume 88.9 FL Mean Corpuscular Hemoglobin 29.7 PG Mean Corpuscular Hemoglobin Concent 33.4 % Red Cell Distribution Width 13.9 % Platelet Count 184 TH/MM3 Mean Platelet Volume 8.2 FL Neutrophils (%) (Auto) 83.4 % Lymphocytes (%) (Auto) 7.8 % Monocytes (%) (Auto) 7.4 % Eosinophils (%) (Auto) 0.9 % Basophils (%) (Auto) 0.5 % Neutrophils # (Auto) 8.1 TH/MM3 Lymphocytes # (Auto) 0.7 TH/MM3 Monocytes # (Auto) 0.7 TH/MM3 Eosinophils # (Auto) 0.1 TH/MM3 Basophils # (Auto) 0.0 TH/MM3 CBC Comment DIFF FINAL Differential Comment Prothrombin Time 11.6 SEC Prothromb Time International Ratio 1.1 RATIO Activated Partial Thromboplast Time 39.2 SEC Blood Urea Nitrogen 15 MG/DL Creatinine 1.00 MG/DL Random Glucose 209 MG/DL Total Protein 6.8 GM/DL Albumin 3.2 GM/DL Calcium Level 8.1 MG/DL Magnesium Level 2.1 MG/DL Aspartate Amino Transf (AST/SGOT) 52 U/L Alanine Aminotransferase (ALT/SGPT) 64 U/L Total Bilirubin 0.4 MG/DL Sodium Level 139 MEQ/L Potassium Level 4.1 MEQ/L Chloride Level 104 MEQ/L Carbon Dioxide Level 29.0 MEQ/L Anion Gap 6 MEQ/L Estimat Glomerular Filtration Rate 72 ML/MIN Lipase 119 U/L MDM Medical Decision Making Medical Screen Exam Complete: Yes Emergency Medical Condition: Yes Medical Record Reviewed: Yes Interpretation(s) EKG: Normal sinus rhythm rate [address] elevation injury pattern or ectopy noted Last Impressions Chest X-Ray 02/28/181935 Signed Impressions: Service Date/Time: Wednesday, February 28, 2018 19:47 - CONCLUSION: No acute disease. Dewayne Jones MD Vital Signs Date Time Temp Pulse Resp B/P (MAP) Pulse Ox O2 Delivery O2 Flow Rate FiO2 02/28/18 19:36 99.1 02/28/18 19:25 71 16 116/66 (83) 98 Differential Diagnosis Chest pain, atypical chest pain, pleurisy, pneumonia, costochondritis, shingles , ACS, AK, PE Narrative Course Patient placed on traffic monitor specialist with continuous pulse oximetry IV access obtained; EKG performed reveals no acute ST elevation injury pattern sinus rhythm is present Lori Louis MD Feb 28, 2018 20:02
[2018-02-28 20:08] LABS: CHLORIDE 104 MEQ/L (98-107); SODIUM (NA) 139 MEQ/L (136-145)
[2018-02-28 20:12] LABS: CALCIUM 8.1 MG/DL (8.5-10.1)
[2018-02-28 20:13] LABS: ALBUMIN 3.2 GM/DL (3.4-5.0); BLOOD UREA NITROGEN 15 MG/DL (7-18); GLUCOSE,RANDOM 209 MG/DL (74-106); MAGNESIUM 2.1 MG/DL (1.5-2.5)
[2018-02-28 20:15] LABS: ALT (GPT) 64 U/L (12-78); AST (GOT) 52 U/L (15-37); GLOMERULAR FILTRATION RATE 72 ML/MIN (>89); INTERNATIONAL NORMALIZED RATIO 1.1 RATIO; PROTHROMBIN TIME - PATIENT 11.6 SEC (9.8-11.6)
[2018-02-28 20:17] LABS: TOTAL BILIRUBIN ADULT 0.4 MG/DL (0.2-1.0); TOTAL PROTEIN 6.8 GM/DL (6.4-8.2)
[2018-02-28 20:18] LABS: ALKALINE PHOSPHATASE 131 U/L (45-117)
[2018-02-28 20:21] LABS: TROPONIN I LESS THAN 0.02 NG/ML (0.02-0.05)
[2018-02-28] MEDS ORDERED: MORPHINE SULFATE 2 MG/ML SYRINGE IV PUSH ONE (21:00)
[2018-02-28] MEDS ORDERED: SODIUM CHLORID 0.9% 500 ML INJ 500 ML IV ONE (21:00)
[2018-02-28] MEDS ORDERED: ONDANSETRON HCL 4 MG/2 ML VIAL IV PUSH ONE (21:00)
[2018-02-28 21:03] VITALS: BP_SYST 114; BP_SYST 116; BP_DIAS 64; BP_DIAS 67; PULSE 64; RESP 16; O2SAT 98
[2018-02-28] MEDS ORDERED: IOHEXOL 350 MG/ML 10 ML VIAL (for RAD DIAG) IVCONTRAST ONE (21:55)
--- NOTE | 2018-02-28 22:03 | RADRPT ---
EXAM DATE/TIME: 02/28/2018 21:38 [facility] COMPARISON: CHEST PA & LAT, February 28, 2018, 19:47. INDICATIONS : Left chest pain. Shortness of breath. IV CONTRAST: 75 cc Omnipaque 350 (iohexol) IV RADIATION DOSE: 11.48 CTDIvol (mGy) MEDICAL HISTORY : None SURGICAL HISTORY : None. ENCOUNTER: Initial ACUITY: 1 week PAIN SCALE: 9/10 LOCATION: Left chest TECHNIQUE: Volumetric scanning of the chest was performed using a pulmonary embolism protocol MIP images were re constructed. Using automated exposure control and adjustment of the mA and/or kV according to patien t size, radiation dose was kept as low as reasonably achievable to obtain optimal diagnostic quality images. DICOM format image data is available electronically for review and comparison. Follow-up recommendations for detected pulmonary nodules are based at a minimum on nodule size and pa tient risk factors according to Fleischner Society Guidelines. FINDINGS: There is focal consolidation noted in the lingula and mild dependent atelectatic changes are seen. No pathologically enlarged lymph nodes are identified. There is no evidence for pulmonary embolism. The re are degenerative changes of the spine noted. CONCLUSION: Lingular consolidation characteristic of pneumonia. No evidence for pulmonary embolus. Followup recom mended after appropriate clinical therapy to insure resolution of the lingular opacity. Dewayne Jones MD on February 28, 2018 at 22:00 Board Certified Radiologist. This report was verified electronically.
[2018-02-28 22:43] VITALS: BP 112/68; PULSE 61; RESP 16; TEMP 100.1; O2SAT 96
[2018-02-28] MEDS ORDERED: AZITHROMYCIN INJ 500 MG in SODIUM CHLOR 0.9% 250 ML INJ 250 ML IV ONE (23:15)
[2018-02-28] MEDS ORDERED: cefTRIAXone INJ 1,000 MG in SODIUM CHLORIDE 0.9% INJ 100 ML IV ONE (23:15)
[2018-02-28] MEDS ORDERED: ONDANSETRON HCL 4 MG/2 ML VIAL IVP PRN (23:45)
[2018-02-28] MEDS ORDERED: ACETAMINOPHEN 325 MG TAB PO PRN (23:45)
[2018-02-28] MEDS ORDERED: SODIUM CHLORIDE 0.9% FLUSH 10 ML FLUSH IV FLUSH PRN (23:45)
[2018-02-28] MEDS ORDERED: SENNOSIDES 8.6 MG TAB PO PRN (23:45)
[2018-02-28] MEDS ORDERED: BISACODYL 10 MG SUPP RECTAL PRN (23:45)
[2018-02-28] MEDS ORDERED: NALOXONE HCL 0.4 MG/ML AMP IV PUSH PRN (23:45)
[2018-02-28] MEDS ORDERED: LACTULOSE SYRUP 20 GM/30 ML CUP PO PRN (23:45)
[2018-02-28] MEDS ORDERED: RESP: ALBUTEROL 2.5 MG/IPRATROPIUM 0.5 MG NEB (PRN) NEB (23:45)
[2018-02-28 23:46] VITALS: O2SAT 96
[2018-02-28] MEDS: MORPHINE SULFATE 2 MG/ML SYRINGE IV PUSH PRN (23:58)
[2018-03-01] VITALS (9 sets, daily range): BP systolic 92–122; BP diastolic 54–71; PULSE 52–75; RESP 14–22; TEMP 97.6–98.8; O2SAT 91–96
[2018-03-01] MEDS: MORPHINE SULFATE 2 MG/ML SYRINGE IV PUSH PRN ×2 (04:27→08:43)
[2018-03-01 06:41] LABS: AUTOMATED NEUTROPHIL # 5.9 TH/MM3 (1.8-7.7); BASOPHIL % 0.2 % (0.0-2.0); EOSINOPHIL # 0.1 TH/MM3 (0-0.4); EOSINOPHIL % 0.8 % (0.0-4.0); HEMATOCRIT 37.2 % (39.0-51.0); HEMOGLOBIN 12.6 GM/DL (13.0-17.0); LYMPH % 12.1 % (9.0-44.0); LYMPHOCYTE # 0.9 TH/MM3 (1.0-4.8); MEAN CELL VOLUME 88.9 FL (80.0-100.0); MEAN CORPUSCULAR HEMOGLOBIN 30.1 PG (27.0-34.0); MEAN CORPUSCULAR HGB CONC 33.9 % (32.0-36.0); MEAN PLATELET VOLUME 8.1 FL (7.0-11.0); MONOCYTE # 0.9 TH/MM3 (0-0.9); NEUT % 74.9 % (16.0-70.0); PLATELET COUNT 156 TH/MM3 (150-450); RED BLOOD COUNT 4.19 MIL/MM3 (4.50-5.90); RED CELL DISTRIBUTION WIDTH 13.8 % (11.6-17.2); WHITE BLOOD COUNT 7.8 TH/MM3 (4.0-11.0)
[2018-03-01 06:51] LABS: CALCIUM 7.9 MG/DL (8.5-10.1)
[2018-03-01 06:52] LABS: BICARBONATE 29.8 MEQ/L (21.0-32.0)
[2018-03-01 07:37] LABS: CREATININE 0.84 MG/DL (0.60-1.30)
[2018-03-01] MEDS: DOCUSATE SODIUM 50 MG/SENNA 8.6 MG TAB PO SCH ×2 (08:42→21:04)
[2018-03-01] MEDS: SODIUM CHLORIDE 0.9% FLUSH 10 ML FLUSH IV FLUSH SCH ×2 (08:43→21:05)
--- NOTE | 2018-03-01 08:51 | EKG ---
Date Performed: 02/28/2018 Time Performed: 19:09:53 PTAGE: 77 years EKG: Sinus rhythm NORMAL ECG Since the PREVIOUS TRACING , no significant change noted DOCTOR: Mirta Abbott Interpretating Date/Time 03/01/2018 08:50:22
--- NOTE | 2018-03-01 10:02 | HHI.HP ---
[facility] Service [place] [facility] Primary Care Physician Carmen Kaur Do, MD Admission Diagnosis Lingular infiltrate; intractable pain Diagnoses: Chief Complaint: Left-sided chest pain Travel History International Travel<30 Days: No Contact w/Intl Traveler <30 Da: No Traveled to Known Affected Are: No History of Present Illness 77-year-old white male being admitted for lingular pneumonia Patient has been recently recovering from the flu about 5 days ago. However 2 days ago he began experiencing weak again. Yesterday around 4 PM he started having some left-sided chest pain specifically associated with deep inspiration now it actually gets worse with massaging. He started having some subjective fevers and chills and thus came to the emergency department. He does report that his coughing has improved since his flu syndrome previously. Has any nausea or vomiting. In the emergency department he underwent a CT scan which was negative for embolism but was positive for a left lingular infiltrate. Review of Systems Except as stated in HPI: all other systems reviewed are Neg Past Family Social History Past Medical History A. fib, recently had the flu Allergies: Coded Allergies: No Known Allergies (Unverified Allergy, Unknown, 02/28/18) Family History Diabetes Social History Stop smoking 40 years ago Physical Exam Vital Signs Vital Signs Date Time Temp Pulse Resp B/P (MAP) Pulse Ox O2 Delivery O2 Flow Rate FiO2 03/01/18 08:00 98.4 66 14 113/56 (75) 95 03/01/18 04:00 97.6 73 17 122/70 (87) 96 03/01/18 01:15 64 03/01/18 01:04 98.8 75 18 117/65 (82) 94 03/01/18 00:55 66 18 103/57 (72) 95 03/01/18 00:03 16 02/28/18 23:46 96 21 02/28/18 22:43 100.1 61 16 112/68 (83) 96 Room Air 02/28/18 21:17 15 02/28/18 21:03 64 16 116/67 (83) 98 Room Air 02/28/18 21:03 114/64 (81) 116/67 (83) 02/28/18 20:57 Room Air 02/28/18 20:57 Room Air 02/28/18 19:36 99.1 02/28/18 19:25 71 16 116/66 (83) 98 Physical Exam VS: afebrile GENERAL: Lying in bed, awake, no acute distress SKIN: Warm and dry. EYES: No scleral icterus. No injection or drainage. ENT: No nasal bleeding or discharge. Mucous membranes pink and moist. CARDIOVASCULAR: Regular rate and rhythm. no murmurs RESPIRATORY: No accessory muscle use. mild rhochi and rales on left; clear on the right GASTROINTESTINAL: Abdomen soft, non-tender, nondistended. Extremities: No clubbing, cyanosis, or edema. No obvious deformities. MUSCULOSKELETAL: adequate muscle bulk and tone for age and habitus NEUROLOGICAL: Awake and alert. No obvious cranial nerve deficits. No facial droop nor slurred speech noted. PSYCHIATRIC: Appropriate mood and affect; insight and judgment normal. Laboratory Laboratory Tests Test 02/28/18 19:19 02/28/18 23:25 03/01/18 05:35 White Blood Count 9.6 7.8 Red Blood Count 4.76 4.19 Hemoglobin 14.1 12.6 Hematocrit 42.3 37.2 Mean Corpuscular Volume 88.9 88.9 Mean Corpuscular Hemoglobin 29.7 30.1 Mean Corpuscular Hemoglobin Concent 33.4 33.9 Red Cell Distribution Width 13.9 13.8 Platelet Count 184 156 Mean Platelet Volume 8.2 8.1 Neutrophils (%) (Auto) 83.4 74.9 Lymphocytes (%) (Auto) 7.8 12.1 Monocytes (%) (Auto) 7.4 12.0 Eosinophils (%) (Auto) 0.9 0.8 Basophils (%) (Auto) 0.5 0.2 Neutrophils # (Auto) 8.1 5.9 Lymphocytes # (Auto) 0.7 0.9 Monocytes # (Auto) 0.7 0.9 Eosinophils # (Auto) 0.1 0.1 Basophils # (Auto) 0.0 0.0 CBC Comment DIFF FINAL DIFF FINAL Differential Comment Prothrombin Time 11.6 Prothromb Time International Ratio 1.1 Activated Partial Thromboplast Time 39.2 Blood Urea Nitrogen 15 13 Creatinine 1.00 0.84 Random Glucose 209 90 Total Protein 6.8 Albumin 3.2 Calcium Level 8.1 7.9 Magnesium Level 2.1 Alkaline Phosphatase 131 Aspartate Amino Transf (AST/SGOT) 52 Alanine Aminotransferase (ALT/SGPT) 64 Total Bilirubin 0.4 Sodium Level 139 139 Potassium Level 4.1 4.0 Chloride Level 104 103 Carbon Dioxide Level 29.0 29.8 Anion Gap 6 6 Estimat Glomerular Filtration Rate 72 89 Total Creatine Kinase 48 Troponin I LESS THAN 0.02 LESS THAN 0.02 Lipase 119 Lactic Acid Level 0.9 Date/Time Source Procedure Growth Status 02/28/18 23:28 Blood Peripheral Aerobic Blood Culture Pending Received 02/28/18 23:28 Blood Peripheral Anaerobic Blood Culture Pending Received Result Diagram: 03/01/18 0535 03/01/18 0535 Imaging Last Impressions Chest X-Ray 02/28/18 1936 Signed Impressions: Service Date/Time: Wednesday, February 28, 2018 19:47 - CONCLUSION: No acute disease. Dewayne Jones MD CT Angiography 02/28/18 0000 Signed Impressions: Service Date/Time: Wednesday, February 28, 2018 21:38 - CONCLUSION: Lingular consolidation characteristic of pneumonia. No evidence for pulmonary embolus. Followup recommended after appropriate clinical therapy to insure resolution of the lingular opacity. Dewayne Jones MD Capkimberlyi VTE Risk Assessment Caprini VTE Risk Assessment: Mod/High Risk (score >= 2) Caprini Risk Assessment Model Point Value = 1 Point Value = 2 Point Value = 3 Point Value = 5 Age 41-60 Minor surgery BMI > 25 kg/m2 Swollen legs Varicose veins or History of unexplained or recurrent spontaneous Oral contraceptives or hormone replacement Sepsis (< 1 month) Serious lung disease, including pneumonia (< 1 month) Abnormal pulmonary function Acute myocardial infarction Congestive heart failure (< 1 month) History of inflammatory bowel disease Medical patient at bed rest Age 61-74 Arthroscopic surgery Major open surgery (> 45 min) Laparoscopic surgery (> 45 min) Malignancy Confined to bed (> 72 hours) Immobilizing plaster cast Central venous access Age >= 75 History of VTE Family history of VTE Factor V Leiden Prothrombin [id number] Lupus anticoagulant Anticardiolipin antibodies Elevated serum homocysteine Heparin-induced thrombocytopenia Other congenital or acquired thrombophilia Stroke (< 1 month) Elective arthroplasty Hip, pelvis, or leg fracture Acute spinal cord injury (< 1 month) Prophylaxis Regimen Total Risk Factor Score Risk Level Prophylaxis Regimen 0-1 Low Early ambulation 2 Moderate Order ONE of the following: *Sequential Compression Device (SCD) *Heparin 5000 units SQ BID 3-4 Higher Order ONE of the following medications: *Heparin 5000 units SQ TID *Enoxaparin/Lovenox 40 mg SQ daily (WT < 150 kg, CrCl > 30 mL/min) *Enoxaparin/Lovenox 30 mg SQ daily (WT < 150 kg, CrCl > 10-29 mL/min) *Enoxaparin/Lovenox 30 mg SQ BID (WT < 150 kg, CrCl > 30 mL/min) AND/OR *Sequential Compression Device (SCD) 5 or more Highest Order ONE of the following medications: *Heparin 5000 units SQ TID (Preferred with Epidurals) *Enoxaparin/Lovenox 40 mg SQ daily (WT < 150 kg, CrCl > 30 mL/min) *Enoxaparin/Lovenox 30 mg SQ daily (WT < 150 kg, CrCl > 10-29 mL/min) *Enoxaparin/Lovenox 30 mg SQ BID (WT < 150 kg, CrCl > 30 mL/min) AND *Sequential Compression Device (SCD) Assessment and Plan Assessment and Plan 77-year-old white male being admitted for left lingular infiltrate pneumonia Left lingular infiltrate pneumonia -Likely occurred superimposed upon recovery from viral syndrome -Continue Rocephin and azithromycin afib - pradaxa, prn flecainide pradaxa Trever Lutz MD Mar 01, 2018 10:02
[2018-03-01] MEDS ORDERED: FLECAINIDE ACETATE 100 MG TAB PO PRN (10:15)
[2018-03-01] MEDS ORDERED: ESZOPICLONE 1 MG TAB PO PRN (10:15)
[2018-03-01] MEDS ORDERED: DABIGATRAN ETEXILATE 150 MG CAP PO SCH (10:15)
[2018-03-01] MEDS ORDERED: PILL SPLITTER OTHER PRN (10:30)
[2018-03-01] MEDS: ACETAMINOPHEN/HYDROcodone 325 MG/5 MG TAB PO PRN ×2 (11:24→21:05)
[2018-03-01] MEDS: HEPARIN SODIUM - SQ 10,000 UNITS/ML VIAL SQ SCH ×3 (11:45→22:27)
[2018-03-01] MEDS: MAGNESIUM HYDROXIDE SUSP 30 ML CUP PO PRN (21:04)
[2018-03-01] MEDS ORDERED: AZITHROMYCIN INJ 500 MG in SODIUM CHLOR 0.9% 250 ML INJ 250 ML IV SCH (22:00)
[2018-03-01] MEDS ORDERED: cefTRIAXone INJ 1,000 MG in SODIUM CHLORIDE 0.9% INJ 100 ML IV SCH (23:00)
[2018-03-02] VITALS: BP 115/70; PULSE 57; RESP 22; TEMP 98.9; O2SAT 94
[2018-03-02 04:00] VITALS: BP 125/69; PULSE 52; RESP 20; TEMP 97.3; O2SAT 96
[2018-03-02] MEDS: ACETAMINOPHEN/HYDROcodone 325 MG/5 MG TAB PO PRN (04:24)
[2018-03-02 08:00] VITALS: BP 112/66; PULSE 56; RESP 18; TEMP 97.4; O2SAT 95
[2018-03-02] MEDS ORDERED: MAPA500T13 PO (09:16)
[2018-03-02] MEDS ORDERED: LEVA500T33 PO (09:16)
[2018-03-02] MEDS: DOCUSATE SODIUM 50 MG/SENNA 8.6 MG TAB PO SCH (09:38)
[2018-03-02] MEDS: MAGNESIUM HYDROXIDE SUSP 30 ML CUP PO PRN (09:38)
[2018-03-02] MEDS: SODIUM CHLORIDE 0.9% FLUSH 10 ML FLUSH IV FLUSH SCH (09:38)
--- NOTE | 2018-03-02 09:54 | HHI.DCPOC ---
Discharge Care Plan Diagnosis: (1) Pneumonia Goals to Promote Your Health * To prevent worsening of your condition and complications * To maintain your health at the optimal level Directions to Meet Your Goals Take your medications as prescribed Follow your dietary instruction Follow activity as directed Keep your appointments as scheduled Take your immunizations and boosters as scheduled If your symptoms worsen call your PCP, if no PCP go to Urgent Care Center or Emergency Room Smoking is Dangerous to Your Health. Avoid second hand smoke Call the 24-hour hour crisis hotline for domestic abuse at Fatoumata Suarez MD Mar 02, 2018 09:54
--- NOTE | 2018-03-02 09:56 | HHI.DS ---
Discharge Summary Admission Date Feb 28, 2018 at 23:41 Discharge Date: Mar 02, 2018 Admitting Diagnosis Lingular infiltrate; intractable pain (1) Pleurisy ICD Code: R09.1 - Pleurisy (2) Pneumonia ICD Code: J18.9 - Pneumonia, unspecified organism Procedures none Brief History - From Admission 77-year-old white male being admitted for lingular pneumonia Patient has been recently recovering from the flu about 5 days ago. However 2 days ago he began experiencing weak again. Yesterday around 4 PM he started having some left-sided chest pain specifically associated with deep inspiration now it actually gets worse with massaging. He started having some subjective fevers and chills and thus came to the emergency department. He does report that his coughing has improved since his flu syndrome previously. Has any nausea or vomiting. In the emergency department he underwent a CT scan which was negative for embolism but was positive for a left lingular infiltrate. CBC/BMP: 03/01/18 0535 03/01/18 0535 Significant Findings Laboratory Tests Test 02/28/18 19:19 02/28/18 23:25 03/01/18 05:35 Neutrophils (%) (Auto) 83.4 % (16.0-70.0) 74.9 % (16.0-70.0) Lymphocytes (%) (Auto) 7.8 % (9.0-44.0) Neutrophils # (Auto) 8.1 TH/MM3 (1.8-7.7) Lymphocytes # (Auto) 0.7 TH/MM3 (1.0-4.8) 0.9 TH/MM3 (1.0-4.8) Activated Partial Thromboplast Time 39.2 SEC (24.3-30.1) Random Glucose 209 MG/DL (74-106) Albumin 3.2 GM/DL (3.4-5.0) Calcium Level 8.1 MG/DL (8.5-10.1) 7.9 MG/DL (8.5-10.1) Alkaline Phosphatase 131 U/L (45-117) Aspartate Amino Transf (AST/SGOT) 52 U/L (15-37) Estimat Glomerular Filtration Rate 72 ML/MIN (>89) Troponin I LESS THAN 0.02 NG/ML LESS THAN 0.02 NG/ML Red Blood Count 4.19 MIL/MM3 (4.50-5.90) Hemoglobin 12.6 GM/DL (13.0-17.0) Hematocrit 37.2 % (39.0-51.0) Monocytes (%) (Auto) 12.0 % (0.0-8.0) Imaging Last Impressions Chest X-Ray 02/28/18 1936 Signed Impressions: Service Date/Time: Wednesday, February 28, 2018 19:47 - CONCLUSION: No acute disease. Dewayne Jones MD CT Angiography 02/28/18 0000 Signed Impressions: Service Date/Time: Wednesday, February 28, 2018 21:38 - CONCLUSION: Lingular consolidation characteristic of pneumonia. No evidence for pulmonary embolus. Followup recommended after appropriate clinical therapy to insure resolution of the lingular opacity. Dewayne Jnoes MD PE at Discharge GENERAL: This is a well-nourished, well-developed patient, in no apparent distress. CARDIOVASCULAR: Regular rate and rhythm without murmurs, gallops, or rubs. RESPIRATORY: Clear to auscultation. Breath sounds equal bilaterally. No wheezes , rales, or rhonchi. GASTROINTESTINAL: Abdomen soft, non-tender, nondistended. Normal active bowel sounds MUSCULOSKELETAL: Extremities without clubbing, cyanosis, or edema. NEURO: Alert & Oriented x4 to person, place, time, situation. Moves all ext x4 Pt update on day of discharge Patient doing much better. Discharge plans discussed with patient and son at bedside. Antibiotics tolerated. Pain is improved. Hospital Course Patient seen and evaluated for pneumonia. His chest discomfort is improved. Discharge plans discussed with patient and son at bedside Pt Condition on Discharge: Good Discharge Disposition: Discharge Home Discharge Time: <= 30 minutes Discharge Instructions DIET: Follow Instructions for: Heart Healthy Diet Activities you can perform: Regular-No Restrictions Follow up Referrals: PCP Follow-up - 1 Week New Medications: Acetaminophen (Mapap Extra Strength) 500 Mg Tab 500 MG PO Q4-6H PRN for PAIN, #60 TAB 0 Refills take two tablets twice daily x 3 days then on tablet every 4 hrs as needed Levofloxacin (Levaquin) 500 Mg Tablet 500 MG PO DAILY for Infection, #4 TAB 0 Refills Continued Medications: Dabigatran (Pradaxa) 150 Mg Cap 150 MG PO BID for Blood Clot Prevention, #60 CAP 0 Refills Eszopiclone (Lunesta) 1 Mg Tab 1 MG PO HS PRN for INSOMNIA, TAB 0 Refills Flecainide (Flecainide) 50 Mg Tab 50 MG PO BID PRN for Atrial fibrillation, #60 TAB 0 Refills Take it if heart rate > 100 at rest. Saw Debord-Zinc (Saw Debord Extract) 160-15 mg Cap 1 CAP PO DAILY, CAP 0 Refills Fatoumata Suarez MD Mar 02, 2018 09:56
== END 2018-03-02 09:58 | disposition home or self-care (01) ==
LOC: PHED 19:09 → PHEDA 23:41 → PH3B 03-01 00:47
PROVIDERS: ADMIT Hospitalist; ATTEND Hospitalist
DX: J18.9 Pneumonia, unspecified organism (principal); R07.9 Chest pain, unspecified; I48.91 Unspecified atrial fibrillation; Z79.02 Long term (current) use of antithrombotics/antiplatelets
CPT/HCPCS: 71046; 71275; 80048; 80053; 82550; 83605; 83690; 83735; 84484; 85025; 85610; 85730; 87040; 93005; 96361; 96365; 96367; 96368; 96372; 96375; 96376; 99285; G0378; J0456; J0696; J1644; J2270; J2405; J7040; J7050; Q9967